=== PATIENT | female | born 1935 | race Caucasian/White ===

== ENCOUNTER 2018-07-07 04:50 | Day surgery (SDC) | payer OTHER ==
[~2018-07-07 04:50] MED LIST: EFFEXOR XR37.5 MG PO; FOSAMAX70 MG PO; LYRICA50 MG PO; METFORMIN HCL500 MG PO; SYNTHROID50 MCG PO
[2018-07-07] MEDS ORDERED: KEFLEX250 MG PO (10:39)
[2018-07-07] MEDS ORDERED: ULTRACET PO (10:40)
== END 2018-07-07 12:20 | disposition home or self-care (01) ==
LOC: CIR.AMB 04:50
DX: N32.81 Overactive bladder (principal); N39.46 Mixed incontinence
CPT/HCPCS: 64581; C1778

== ENCOUNTER 2018-07-21 08:56 | Day surgery (SDC) | payer OTHER ==
[~2018-07-21 08:56] MED LIST changes: +KEFLEX250 MG PO; +ULTRACET PO
== END 2018-07-21 16:40 | disposition home or self-care (01) ==
LOC: CIR.AMB 08:56
DX: T85.193A Other mechanical complication of implanted electronic neurostimulator, generator, initial encounter (principal); N39.41 Urge incontinence; N32.81 Overactive bladder